=== PATIENT | male | born 1965 | race Caucasian/White ===

== ENCOUNTER → 2016-09-15 | Outpatient (CLI) | payer OTHER | LOC: US 09-05 08:00 | DX: R89.4 Abnormal immunological findings in specimens from other organs, systems and tissues (principal); R74.8 Abnormal levels of other serum enzymes | CPT/HCPCS: 76700 ==

== ENCOUNTER 2020-06-19 10:49 | Emergency (ER) | payer OTHER ==
[2020-06-19 12:11] LABS: HEMOGLOBIN 14.1 gm/dl (14.0-17.5); RED BLOOD COUNT 3.98 M/UL (4.20-5.50); WHITE BLOOD COUNT 3.9 K/UL (4.5-11.0)
[2020-06-19 13:09] LABS: BUN/CREATININE RATIO 8 (0-10)
== END 2020-06-19 15:30 | disposition home or self-care (01) ==
LOC: ER1 10:49
PROVIDERS: Emergency Medicine
DX: F10.129 Alcohol abuse with intoxication, unspecified (principal); R20.2 Paresthesia of skin; E87.1 Hypo-osmolality and hyponatremia; R79.89 Other specified abnormal findings of blood chemistry; Z91.81 History of falling; Y90.8 Blood alcohol level of 240 mg/100 ml or more
CPT/HCPCS: 70450; 71045; 80053; 80307; 81001; 82550; 82553; 83735; 83874; 84484; 85025; 93005; 99284; G0480; J3411; J3475; J7030

== ENCOUNTER 2020-08-09 00:12 | Inpatient (IN) | payer OTHER ==
[~2020-08-09] VITALS: Ht 180.3 cm; Wt 81.6 kg
[2020-08-09 02:57] LABS: HEMOGLOBIN 11.8 gm/dl (14.0-17.5); RED BLOOD COUNT 3.26 M/UL (4.20-5.50); WHITE BLOOD COUNT 7.8 K/UL (4.5-11.0)
[2020-08-09 03:22] LABS: BUN/CREATININE RATIO 7 (0-10)
[2020-08-09 14:37] LABS: BUN/CREATININE RATIO 7 (0-10)
[2020-08-10 04:49] LABS: HEMOGLOBIN 12.3 gm/dl (14.0-17.5); RED BLOOD COUNT 3.44 M/UL (4.20-5.50); WHITE BLOOD COUNT 7.5 K/UL (4.5-11.0)
[2020-08-10 05:18] LABS: BUN/CREATININE RATIO 6 (0-10)
[2020-08-11 04:36] LABS: HEMOGLOBIN 11.6 gm/dl (14.0-17.5); RED BLOOD COUNT 3.21 M/UL (4.20-5.50); WHITE BLOOD COUNT 6.5 K/UL (4.5-11.0)
[2020-08-11 04:52] LABS: BUN/CREATININE RATIO 9 (0-10)
[2020-08-12 05:14] LABS: HEMOGLOBIN 11.1 gm/dl (14.0-17.5); RED BLOOD COUNT 3.12 M/UL (4.20-5.50); WHITE BLOOD COUNT 5.8 K/UL (4.5-11.0)
[2020-08-12 05:33] LABS: BUN/CREATININE RATIO 10 (0-10)
[2020-08-13 05:43] LABS: HEMOGLOBIN 11.4 gm/dl (14.0-17.5); RED BLOOD COUNT 3.2 M/UL (4.20-5.50); WHITE BLOOD COUNT 4.7 K/UL (4.5-11.0)
[2020-08-13 06:14] LABS: BUN/CREATININE RATIO 10 (0-10)
[2020-08-14 05:11] LABS: HEMOGLOBIN 12.7 gm/dl (14.0-17.5)
[2020-08-14 05:20] LABS: RED BLOOD COUNT 3.54 M/UL (4.20-5.50)
[2020-08-14 05:28] LABS: BUN/CREATININE RATIO 11 (0-10)
[2020-08-15 05:36] LABS: HEMOGLOBIN 12.6 gm/dl (14.0-17.5); RED BLOOD COUNT 3.55 M/UL (4.20-5.50); WHITE BLOOD COUNT 6.9 K/UL (4.5-11.0)
[2020-08-15 06:05] LABS: BUN/CREATININE RATIO 18 (0-10)
[2020-08-16 03:16] LABS: HEMOGLOBIN 12.9 gm/dl (14.0-17.5); RED BLOOD COUNT 3.68 M/UL (4.20-5.50); WHITE BLOOD COUNT 8.1 K/UL (4.5-11.0)
[2020-08-16 03:39] LABS: BUN/CREATININE RATIO 21 (0-10)
--- NOTE | 2020-08-17 03:28 | NUR ---
much more alert, moving about in the bed, vs stable, mp= nsr, no acute distress noted
[2020-08-17 07:22] LABS: HEMOGLOBIN 12.4 gm/dl (14.0-17.5); RED BLOOD COUNT 3.53 M/UL (4.20-5.50); WHITE BLOOD COUNT 8.2 K/UL (4.5-11.0)
[2020-08-17 07:39] LABS: BUN/CREATININE RATIO 20 (0-10)
[2020-08-18 04:33] LABS: HEMOGLOBIN 12.2 gm/dl (14.0-17.5); RED BLOOD COUNT 3.47 M/UL (4.20-5.50); WHITE BLOOD COUNT 7.8 K/UL (4.5-11.0)
[2020-08-18 04:55] LABS: BUN/CREATININE RATIO 25 (0-10)
[2020-08-19 03:20] LABS: BUN/CREATININE RATIO 19 (0-10)
--- NOTE | 2020-08-19 13:50 | NUR ---
CLEARED PTs STAYING WITH HIM DUE TO HIS CONFUSION. PT SEEMS TO BE CALMER WHEN THE IS HERE. HOUSE WAS CONTACTED AND AGREED THAT IT WOULD BE BENEFICIAL IF PATIENT HAD HERE.
[2020-08-20 02:09] LABS: HEMOGLOBIN 10.6 gm/dl (14.0-17.5); WHITE BLOOD COUNT 9.7 K/UL (4.5-11.0)
[2020-08-20 02:19] LABS: RED BLOOD COUNT 3.02 M/UL (4.20-5.50)
[2020-08-20 02:30] LABS: BUN/CREATININE RATIO 21 (0-10)
[2020-08-21 08:52] LABS: BUN/CREATININE RATIO 16 (0-10)
[2020-08-22 06:42] LABS: BUN/CREATININE RATIO 11 (0-10)
[2020-08-22] MEDS ORDERED: DAILY VITAMIN1 EAC2 PO (14:46)
[2020-08-22] MEDS ORDERED: FOLIC ACID0.4 MG PO (14:46)
[2020-08-22] MEDS ORDERED: VITAMIN B-1100 M1 PO (14:46)
[2020-08-22] MEDS ORDERED: PROTONIX 40 MG40 M1 PO (14:46)
[2020-08-22] MEDS ORDERED: NICOTINE PATCH1 EAC1 TOP (14:46)
== END 2020-08-22 17:32 | disposition home health service (06) | DRG 896 ==
LOC: ER1 00:12 → CDU 05:28 → M/S 05:28 → CCU 05:28 → PROG CARE 08-18 04:19 → M/S 08-20 16:35
PROVIDERS: Internal Medicine; Internal Medicine Pulmonary Disease; Physician Assistant; ADMIT Internal Medicine
PROC: 0DH67UZ Insertion of Feeding Device into Stomach, Via Natural or Artificial Opening (ICD-10-PCS; principal; 2020-08-10)
PROC: 3E0G76Z Introduction of Nutritional Substance into Upper GI, Via Natural or Artificial Opening (ICD-10-PCS; 2020-08-10)
PROC: 0BH17EZ Insertion of Endotracheal Airway into Trachea, Via Natural or Artificial Opening (ICD-10-PCS; 2020-08-10)
PROC: 5A1955Z Respiratory Ventilation, Greater than 96 Consecutive Hours (ICD-10-PCS; 2020-08-10)
DX: F10.231 Alcohol dependence with withdrawal delirium (principal); G93.41 Metabolic encephalopathy; J69.0 Pneumonitis due to inhalation of food and vomit; J96.01 Acute respiratory failure with hypoxia; G40.509 Epileptic seizures related to external causes, not intractable, without status epilepticus; E87.1 Hypo-osmolality and hyponatremia; E87.6 Hypokalemia; E83.42 Hypomagnesemia; E83.39 Other disorders of phosphorus metabolism; H70.90 Unspecified mastoiditis, unspecified ear; F17.220 Nicotine dependence, chewing tobacco, uncomplicated; Z79.899 Other long term (current) drug therapy; K70.10 Alcoholic hepatitis without ascites; K70.30 Alcoholic cirrhosis of liver without ascites; I95.2 Hypotension due to drugs; Z20.822 Contact with and (suspected) exposure to COVID-19; D53.9 Nutritional anemia, unspecified
CPT/HCPCS: 31500; 36415; 36600; 70450; 70551; 71045; 76705; 80048; 80053; 80076; 80202; 80307; 82140; 82150; 82607; 82746; 82803; 83690; 83735; 84100; 84132; 85025; 85027; 85610; 86140; 87070; 87077; 87186; 87205; 92526; 92610; 93005; 94002; 94003; 94760; 95816; 96365; 96366; 96367; 96372; 96375; 96376; 97116-GP-CQ; 97162; 97530-GP-CQ; 99285; C9113; G0480; J0330; J1200; J1630; J1650; J1885; J1940; J2060; J2250; J2543; J2704; J3360; J3370; J3411; J3475; J3480; J3486; J7030; J7040; J7070; U0002